=== PATIENT | male | born 1955 | race Caucasian/White ===

== ENCOUNTER 2016-08-15 23:15 | Emergency (ER) | payer SELFPAY ==
[~2016-08-15] VITALS: Ht 177.8 cm; Wt 70.0 kg
[2016-08-15 23:15] VITALS: BP 131/72
== END 2016-08-16 01:37 | disposition left against medical advice (07) ==
LOC: ER 23:20
DX: R21 Rash and other nonspecific skin eruption (principal); R05 Cough; F17.200 Nicotine dependence, unspecified, uncomplicated; R09.81 Nasal congestion
CPT/HCPCS: 99283

== ENCOUNTER 2017-11-02 01:29 | Emergency (ER) | payer MEDICARE ==
[~2017-11-02] VITALS: Ht 185.4 cm; Wt 73.0 kg
[2017-11-02 01:30] VITALS: BP 148/66
== END 2017-11-02 02:10 | disposition left against medical advice (07) ==
LOC: ER 01:29
DX: Z53.21 Procedure and treatment not carried out due to patient leaving prior to being seen by health care provider (principal)

== ENCOUNTER 2018-04-06 02:12 | Emergency (ER) | payer MEDICARE, OTHER ==
[~2018-04-06] VITALS: Ht 165.1 cm; Wt 77.0 kg
[2018-04-06 02:15] VITALS: BP 101/61
== END 2018-04-06 06:45 | disposition left against medical advice (07) ==
LOC: ER 02:12
DX: M79.662 Pain in left lower leg (principal); Z53.21 Procedure and treatment not carried out due to patient leaving prior to being seen by health care provider